=== PATIENT | female | born 1965 | race Caucasian/White ===

== ENCOUNTER 2022-03-24 21:05 | Emergency (ER) | payer OTHER ==
[2022-03-24] MEDS ORDERED: ERYTHROMYCIN O3.5 GM OD (22:08)
== END 2022-03-24 22:30 | disposition home or self-care (01) ==
LOC: ER1 21:05
DX: S05.01XA Injury of conjunctiva and corneal abrasion without foreign body, right eye, initial encounter (principal); F17.210 Nicotine dependence, cigarettes, uncomplicated; X58.XXXA Exposure to other specified factors, initial encounter
CPT/HCPCS: 99283